=== PATIENT | male | born 1995 | race Caucasian/White ===

== ENCOUNTER 2017-01-11 09:20 | Emergency (ER) | payer OTHER ==
[2017-01-11 09:42] LABS: BILIRUBIN,URINE NEGATIVE (NEGATIVE); PH,URINE 8.5 PH (5.0-7.5)
[2017-01-11 09:44] LABS: UA CHARGE (STRIP ONLY) YES; UR CULTURE IF IND NOT INDICATED
--- NOTE | 2017-01-11 10:31 | ED Physician Documentation ---
PD HPI MALE - Stated complaint Stated Complaint: MALE - Chief complaint Chief Complaint: Abd Pain - History obtained from History obtained from: Patient - History of Present Illness Timing - onset: How many weeks ago (couple weeks of feeling urgency and frequency of urine, particularly at night, feeling like he has to push to get urine out and only dribbles. Seen at [facility] clinic with normal UA, and is getting referral to Urologist. Patient says no meds given other than Pyridium.) Timing - duration: Weeks Timing - details: Gradual onset, Waxing and waning Associated symptoms: Dysuria (mild), Urinary frequency, Discharge (he will note some thick mucous from urethra just in mornings, no discharge through the day.) . No: Genital sore / lesion, Testiclar pain, Abdominal pain, Back pain PD HPI MALE CONTRIB FACTORS: Sexually active. No: Exposed to STD Similar symptoms before: Has not had sx before Recently seen: Clinic Review of Systems Constitutional: denies: Fever, Chills GI: denies: Abdominal Pain, Nausea, Vomiting, Diarrhea PD PAST MEDICAL HISTORY - Past Medical History Past Medical History: No - Past Surgical History Past Surgical History: Yes - Present Medications Home Medications: Ambulatory Orders Medication Instructions Recorded Confirmed Doxycycline Hyclate 100 mg PO BID #14 tablet 01/11/17 Naproxen [Naprosyn] 500 mg PO BID #14 tablet 01/11/17 - Allergies Allergies/Adverse Reactions: Allergies Allergy/AdvReac Type Severity Reaction Status Date / Time No Known Drug Allergies Allergy Verified 01/11/17 09:28 - Social History Does the pt smoke?: No Smoking Status: Never smoker Does the pt drink ETOH?: No - Immunizations Immunizations are current?: Yes PD ED PE NORMAL - Vitals Vital signs reviewed: Yes - General General: Alert and oriented X 3, No acute distress, Well developed/nourished - Abdomen Abdomen: Soft, Non tender - Male Male : Other (normal genitalia, testes normal size and not tender. No rash nor sores. ) - Back Back: No CVA TTP - Derm Derm: Normal color, Warm and dry Results - Vitals Vitals: Oxygen O2 Source Room air - Labs Labs: Laboratory Tests 01/11/17 09:30 Urine Color YELLOW Urine Clarity CLEAR Urine pH 8.5 H Ur Specific Michael 1.015 Urine Protein NEGATIVE Urine Glucose (UA) NEGATIVE Urine Ketones NEGATIVE Urine Occult Blood NEGATIVE Urine Nitrite NEGATIVE Urine Bilirubin NEGATIVE Urine Urobilinogen 1 (NORMAL) Ur Leukocyte Esterase NEGATIVE Ur Microscopic Review NOT INDICATED Urine Culture Comments NOT INDICATED PD MEDICAL DECISION MAKING - ED course Complexity details: considered differential (likely urethritis. Bladder scan here is minimal 38 ml. UA normal, but would consider chlamydia or such. ), d/w patient Departure - Departure Disposition: 01 Home, Self Care Clinical Impression: Urethritis Condition: Stable Record reviewed to determine appropriate education?: Yes Instructions: ED Urethritis Infec Vs Inflam Male Follow-Up: [facility] [Provider Group] Prescriptions: Doxycycline Hyclate 100 mg PO BID #14 tablet Naproxen [Naprosyn] 500 mg PO BID #14 tablet Comments: Take antibiotics and anti-inflammatories presuming possible infection versus inflammation of the urethra. Follow up PCP and referral to Urology. Hopefully will improve over the next days/week. Discharge Date/Time: 01/11/17 11:30
[2017-01-11] MEDS ORDERED: DOXYCYCLINE 100 MG TABLET PO ONE (10:58)
[2017-01-11] MEDS: DOXYCYCLINE 100 MG TABLET PO STA (11:01)
[2017-01-11 11:30] VITALS: BP 119/79
[2017-01-14 12:34] LABS: C.TRACHOMATIS BY TMA Negative; N.GONORRHOEAE BY TMA Negative
== END 2017-01-11 11:30 | disposition home or self-care (01) ==
LOC: ED 09:20
DX: N34.2 Other urethritis (principal)
CPT/HCPCS: 51798; 81001; 81003; 87086; 87491; 87591; 99283